=== PATIENT | female | born 1995 | race Caucasian/White ===

== ENCOUNTER 2016-09-29 21:00 | Emergency (ER) | payer BC, MEDICAID ==
--- NOTE | 2016-09-29 21:58 | ER Document Report ---
ED GI/ - General Chief Complaint: Vag Bleeding, +preg <12wks Stated Complaint: VAGINAL CRAMPING,BLEEDING Time Seen by Provider: 09/29/16 21:50 Notes: Patient is a 21-year-old female, at 7.5 weeks gestation by last menstrual period, that comes emergency department for chief complaint of abdominal cramping today with lower abdominal cramps, she also has had vaginal bleeding with some spotting, denies severe pain or heavy bleeding. Patient denies fever , vomiting, or any other areas of pain. Patient had a miscarriage in the first trimester with her first . She is on vitamins, takes no other medications, denies any other medical history. TRAVEL OUTSIDE OF THE [place] IN LAST 30 DAYS: No - Related Data Allergies/Adverse Reactions: amoxicillin trihydrate [From Augmentin] Allergy (Verified 03/07/16 08:53) Potassium Clavulanate * [From Augmentin] Allergy (Verified 03/07/16 08:53) Past Medical History - General Information source: Patient - Social History Smoking Status: Never Smoker Frequency of alcohol use: None Drug Abuse: None Lives with: Family Family History: Reviewed & Not Pertinent - Medical History Medical History: Negative Renal/ Medical History: Denies: Hx Peritoneal Dialysis Past Surgical History: Reports: Hx Umbilical Hernia - Immunizations Immunizations up to date: Yes Hx Diphtheria, Pertussis, Tetanus Vaccination: Yes Review of Systems - Review of Systems Constitutional: No symptoms reported EENT: No symptoms reported Cardiovascular: No symptoms reported Respiratory: No symptoms reported Gastrointestinal: See HPI Genitourinary: See HPI Female Genitourinary: No symptoms reported Musculoskeletal: No symptoms reported Skin: No symptoms reported Hematologic/Lymphatic: No symptoms reported Neurological/Psychological: No symptoms reported Physical Exam - Vital signs Vitals: Temp Pulse Resp BP Pulse Ox 98.2 F 88 18 129/78 H 98 09/29/16 21:13 09/29/16 21:13 09/29/16 21:13 09/29/16 21:13 09/29/16 21:13 Interpretation: Normal - General General appearance: Appears well, Alert In distress: None - HEENT Head: Normocephalic, Atraumatic Eyes: Normal Extraocular movements intact: Yes Eyelashes: Normal Pupils: PERRL Nasal: Normal Mouth/Lips: Normal Mucous membranes: Normal Pharynx: Normal Neck: Normal - Respiratory Respiratory status: No respiratory distress Chest status: Nontender Breath sounds: Normal. No: Decreased air movement, Wheezing Chest palpation: Normal - Cardiovascular Rhythm: Regular. No: Tachycardia Heart sounds: Normal auscultation, S1 appreciated, S2 appreciated Murmur: No - Abdominal Inspection: Normal Distension: No distension Bowel sounds: Normal Tenderness: Tender - very mild generalized lower abdominal tenderness Organomegaly: No organomegaly - Back Back: Normal, Nontender - Extremities General upper extremity: Normal inspection, Nontender, Normal color, Normal ROM , Normal temperature General lower extremity: Normal inspection, Nontender, Normal color, Normal ROM , Normal temperature, Normal weight bearing. No: Randy's sign - Neurological Neuro grossly intact: Yes Cognition: Normal Orientation: AAOx4 Kalee Coma Scale Eye Opening: Spontaneous [place] Coma Scale Verbal: Oriented Kalee Coma Scale Motor: Obeys Commands [place] Coma Scale Total: 15 Speech: Normal Motor strength normal: LUE, RUE, LLE, RLE Sensory: Normal - Psychological Associated symptoms: Normal affect, Normal mood - Skin Skin Temperature: Warm Skin Moisture: Dry Skin Color: Normal Course - Re-evaluation Re-evalutation: Is well-appearing, abdominal exam is unremarkable, vital signs with no acute abnormalities. CBC, urine generally unremarkable. HCG is low, only in the 400s. RhoGam is not indicated. Ultrasound with no acute abnormalities but also does not show an IUP which is consistent with patient's low hCG. I discussed with patient, mother in detail. Discussed hCG repeat, patient was given a prescription for this, discussed details about this, discussed follow-up , discussed return precautions in detail, patient and mother state understanding and agreement with plan. - Vital Signs Vital signs: Temp Pulse Resp BP Pulse Ox 97.4 F 68 14 118/75 99 09/30/16 00:58 09/30/16 00:58 09/30/16 00:58 09/30/16 00:58 09/30/16 00:58 - Laboratory Result Diagrams: 09/29/16 22:30 Laboratory results interpreted by me: 09/29/16 09/29/16 09/29/16 22:30 22:30 22:30 WBC 10.7 H Hgb 15.6 H Beta HCG, Quant 483.74 H Urine Blood SMALL H Discharge - Discharge Clinical Impression: Vaginal bleeding in patient at less than 20 weeks gestation, Pelvic cramping Condition: Stable Disposition: HOME, SELF-CARE Additional Instructions: Your hCG ( hormone) today is low at 483, I recommend a repeat in 48-72 hours to recheck this and trend either take the prescription to the lab or return to emergency department to have this accomplished. Ultrasound shows no concerning abnormalities but it is too early to tell what is happening at this point in the . Your blood type is A+. Avoid any stressful physical activity beyond walking, avoid jumping, lifting, sexual intercourse until cleared by CERTIFIED PHLEBOTOMIST. Follow-up with OBGYN closely. Return to emergency department sooner for any concerning or worsening symptoms including severe pain, heavy bleeding with dizziness, fever, or any other concerning symptoms. Forms: Follow-Up Laboratory Testing, Special Work Note
[2016-09-29 22:45] LABS: ABSOLUTE BASOPHILS # (AUTO) 0.1 10^3/uL (0.0-0.2); ABSOLUTE EOSINOPHILS # (AUTO) 0.1 10^3/uL (0.0-0.6); ABSOLUTE LYMPHOCYTES (AUTO) 3.8 10^3/uL (0.5-4.7); ABSOLUTE MONOCYTES (AUTO) 0.9 10^3/uL (0.1-1.4); ABSOLUTE NEUT (AUTO) 5.8 10^3/uL (1.7-8.2); BASOPHILS % (AUTO) 0.6 % (0-2); EOSINOPHILS % (AUTO) 1.3 % (0-6); HEMATOCRIT 46.8 % (36.0-47.0); HEMOGLOBIN 15.6 g/dL (12.0-15.5); LYMPHOCYTES % (AUTO) 35.8 % (13-45); MEAN CORPUSCULAR HEMOGLOBIN 30.6 pg (27.0-33.4); MEAN CORPUSCULAR HGB CONC 33.3 g/dL (32.0-36.0); MEAN CORPUSCULAR VOLUME 92 fl (80-97); MONOCYTES % (AUTO) 8.1 % (3-13); RED BLOOD COUNT 5.08 10^6/uL (3.72-5.28); RED CELL DISTRIBUTION WIDTH 12.5 % (11.5-14.0); SEGMENTED NEUTROPHILS % (AUTO) 54.2 % (42-78); WHITE BLOOD COUNT 10.7 10^3/uL (4.0-10.5)
[2016-09-29 22:54] LABS: APPEARANCE,URINE SLIGHTLY-CLOUDY; BILIRUBIN,URINE NEGATIVE (NEGATIVE); GLUCOSE, URINE NEGATIVE (NEGATIVE); KETONES,URINE NEGATIVE (NEGATIVE); LEUKOCYTE ESTERASE,URINE NEGATIVE (NEGATIVE); NITRITE,URINE NEGATIVE (NEGATIVE); PROTEIN,URINE NEGATIVE (NEGATIVE); URINE SPECIFIC GRAVITY 1.006; UROBILINOGEN,URINE NEGATIVE mg/dL (<2.0)
--- NOTE | 2016-09-30 00:17 | RADIOLOGY REPORT (SQ) ---
EXAM DESCRIPTION: U/S OB TRANSVAG W/DOPPLER COMPLETED DATE/TIME: 09/29/2016 11:57 pm REASON FOR STUDY: cramping, vaginal bleeding COMPARISON: None. TECHNIQUE: Transvaginal static and realtime grayscale images acquired of the pelvis. Additional jazmin cted spectral and color Doppler images recorded. All images stored on PACs. bHC LIMITATIONS: None. FINDINGS: UTERUS: No masses. No anomalies. GESTATIONAL SAC: Probable gestational sac visualized measuring 0.7 cm YOLK SAC: No. POLE: Presumed pole measuring 0.4 cm RIGHT ADNEXA: Normal ovary with normal vascular flow. No adnexal free fluid. No adnexal masses. LEFT ADNEXA: Normal ovary with normal vascular flow. No adnexal free fluid. No adnexal masses. FREE FLUID: None. OTHER: No other significant finding. IMPRESSION: POSSIBLE EARLY INTRAUTERINE . BHCG LEVEL APPROPRIATE FOR ENDOMETRIAL FINDINGS, BUT FAR BELOW THRESHOLD FOR SONOGRAPHIC CONFIRMATION . CONSIDER F/U BHCG AND/OR ULTRASOUND FOR VERIFICATION AND TO EXCLUDE ECTOPIC . Trimester of : First - 0 to 13 weeks. TECHNICAL DOCUMENTATION: JOB ID: [id number] [employer] All Rights Reserved
[2016-09-30 00:59] VITALS: BP 118/75
== END 2016-09-30 00:58 | disposition home or self-care (01) ==
LOC: ER 21:00
DX: O20.9 Hemorrhage in early pregnancy, unspecified (principal); R10.2 Pelvic and perineal pain; Z3A.01 Less than 8 weeks gestation of pregnancy; Z88.0 Allergy status to penicillin
CPT/HCPCS: 36415; 76817; 81001; 84702; 85025; 86900; 86901; 93976; 99284

== ENCOUNTER → 2016-10-03 | Outpatient (CLI) | payer MEDICAID | LOC: LAB 11:10 | DX: O46.90 Antepartum hemorrhage, unspecified, unspecified trimester (principal) | CPT/HCPCS: 36415; 84702 ==

== ENCOUNTER → 2016-10-10 | Outpatient (CLI) | payer MEDICAID | LOC: OCH 10:41 | DX: O20.0 Threatened abortion (principal) | CPT/HCPCS: 36415; 84702 ==

== ENCOUNTER → 2016-10-10 | Outpatient (CLI) | payer MEDICAID ==
--- NOTE | 2016-10-10 11:43 | RADIOLOGY REPORT (SQ) ---
EXAM DESCRIPTION: U/S NON-OB PELVIS W/O DOP COMPLETED DATE/TIME: 10/10/2016 10:44 am REASON FOR STUDY: EVALUATE FOR RETAINED PRODUCTS OF CONCEPTION O20.0 THREATENED COMPARISON: None. TECHNIQUE: Dynamic and static grayscale images acquired of the pelvis via transabdominal approach an d recorded on PACS. Additional selected color Doppler and spectral images recorded. LIMITATIONS: None. FINDINGS: UTERUS: Contour normal. No mass. ENDOMETRIAL STRIPE: No focal or generalized thickening. No masses. CERVIX: No nabothian cysts. RIGHT OVARY: Ovary not visualized. RIGHT OVARY DOPPLER: Normal arterial vascular flow without evidence for torsion. LEFT OVARY: No abnormal masses. LEFT OVARY DOPPLER: Normal arterial vascular flow without evidence for torsion. FREE FLUID: None noted. OTHER: No other significant finding. MEASUREMENTS: UTERUS: 8.2 x 4.5 x 3.4 cm ENDOMETRIAL STRIPE: 7 mm RIGHT OVARY: Not visualized. LEFT OVARY: 2.8 x 3.2 x 1.8 cm. IMPRESSION: No evidence of retained products. TECHNICAL DOCUMENTATION: JOB ID: [id number]- All Rights Reserved
== END ==
LOC: RAD 09:24
PROVIDERS: ATTEND Nurse Practitioner Women's Health
DX: R10.2 Pelvic and perineal pain (principal)
CPT/HCPCS: 76856

== ENCOUNTER 2016-12-26 10:26 | Emergency (ER) | payer MEDICAID ==
--- NOTE | 2016-12-26 11:27 | ER Document Report ---
ED General - General Chief Complaint: Hyperventilation Stated Complaint: WEAKNESS Time Seen by Provider: 12/26/16 11:07 Mode of Arrival: Ambulatory Information source: Patient Notes: 21-year-old female presents to ED after having a syncopal episode at work. She states she felt like her throat was closing that she was having trouble breathing and her chest felt tight when she collapsed. People around her say she was out for maybe 20 seconds. Then she woke up and had some tightness in her chest for about 3 minutes. Patient states she had some tightness mild in her chest with a deep breath when she first came in but she is feeling fine now. TRAVEL OUTSIDE OF THE [place] IN LAST 30 DAYS: No - HPI Onset: Just prior to arrival Onset/Duration: Gradual Quality of pain: Other - Tightness in her chest shortness of breath Severity: None Pain Level: Denies Associated symptoms: Other - Patient states she felt like her throat was closing then became short of breath tightness and chest collapsed for 20 seconds. When she woke up she could not breathe for a couple minutes and 911 was called. Exacerbated by: Denies Relieved by: Denies Similar symptoms previously: No Recently seen / treated by doctor: No - Related Data Allergies/Adverse Reactions: amoxicillin trihydrate [From Augmentin] Allergy (Verified 12/26/16 10:30) Potassium Clavulanate * [From Augmentin] Allergy (Verified 12/26/16 10:30) Past Medical History - General Information source: Patient Last Menstrual Period: 11/25/2015 - Social History Smoking Status: Former Smoker Cigarette use (# per day): No Chew tobacco use (# tins/day): No Smoking Education Provided: No Frequency of alcohol use: Rare Drug Abuse: None Occupation: [employer] Lives with: Family Family History: Arthritis, CAD, COPD, DM, Hyperlipidemia, Hypertension, Malignancy Patient has suicidal ideation: No Patient has homicidal ideation: No - Past Medical History Cardiac Medical History: Reports: Hx Heart Murmur - Heart at this time, Other - States 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 that was he was suppo Pulmonary Medical History: Reports: Hx Asthma EENT Medical History: Reports: None Neurological Medical History: Reports: None Endocrine Medical History: Reports: None Renal/ Medical History: Reports: Other - Miscarriage 2 the last one in September 2016 Malignancy Medical History: Reports: None GI Medical History: Reports: None Musculoskeltal Medical History: Reports Hx Musculoskeletal Trauma - Fractured left fourth finger and fifth left toe and nose Skin Medical History: Reports None Psychiatric Medical History: Reports: Hx Depression Traumatic Medical History: Reports: Hx Fractures - Left fourth finger left fifth toe Infectious Medical History: Reports: None Past Surgical History: Reports: Hx Umbilical Hernia - Immunizations Immunizations up to date: Yes Hx Diphtheria, Pertussis, Tetanus Vaccination: Yes Review of Systems - Review of Systems Constitutional: No symptoms reported EENT: No symptoms reported Cardiovascular: Syncope Respiratory: Short of breath Gastrointestinal: No symptoms reported Genitourinary: No symptoms reported Female Genitourinary: No symptoms reported Musculoskeletal: No symptoms reported Skin: No symptoms reported Hematologic/Lymphatic: No symptoms reported Neurological/Psychological: No symptoms reported -: Yes All other systems reviewed and negative Physical Exam - Vital signs Vitals: Temp Pulse Resp BP Pulse Ox 98.5 F 65 14 107/44 L 100 12/26/16 10:42 12/26/16 10:42 12/26/16 10:42 12/26/16 10:42 12/26/16 10:42 Interpretation: Normal, Other - Vital signs and pivot were 98.5 pulse 65 respirations 14 sat 100% and they had a blood pressure 107/44 I had the tech retake the blood pressure in the emergency room and her blood pressure was 118/ 60 - General General appearance: Appears well, Alert - HEENT Head: Normocephalic, Atraumatic Eyes: Normal Pupils: PERRL - Respiratory Respiratory status: No respiratory distress Chest status: Nontender Breath sounds: Normal Chest palpation: Normal - Cardiovascular Rhythm: Regular Heart sounds: Normal auscultation Murmur: No - Abdominal Inspection: Normal Distension: No distension Bowel sounds: Normal Tenderness: Nontender Organomegaly: No organomegaly - Back Back: Normal, Nontender - Extremities General upper extremity: Normal inspection, Nontender, Normal color, Normal ROM , Normal temperature General lower extremity: Normal inspection, Nontender, Normal color, Normal ROM , Normal temperature, Normal weight bearing. No: Randy's sign - Neurological Neuro grossly intact: Yes Cognition: Normal Orientation: AAOx4 Kalee Coma Scale Eye Opening: Spontaneous [place] Coma Scale Verbal: Oriented [place] Coma Scale Motor: Obeys Commands [place] Coma Scale Total: 15 Speech: Normal Motor strength normal: LUE, RUE, LLE, RLE Sensory: Normal - Psychological Associated symptoms: Normal affect, Normal mood - Skin Skin Temperature: Warm Skin Moisture: Dry Skin Color: Normal Course - Re-evaluation Re-evalutation: 12/26/16 11:[address] Parham and he recommended an ekg and follow up with her primary md 12/26/16 11:[address] Parham and patient will be discharged home. - Vital Signs Vital signs: Temp Pulse Resp BP Pulse Ox 98.5 F 65 14 107/44 L 100 12/26/16 10:42 12/26/16 10:42 12/26/16 10:42 12/26/16 10:42 12/26/16 10:42 - EKG Interpretation by Me EKG shows normal: Sinus rhythm Rate: Normal Rhythm: NSR Discharge - Discharge Clinical Impression: Syncope and collapse Condition: Stable Disposition: HOME, SELF-CARE Instructions: Family Physicians / Practices Additional Instructions: SYNCOPAL EPISODE: Syncope (fainting or near-fainting) can occur from many different health problems. Or it can be a simple fainting spell requiring no treatment. It is safe for you to go home, but further evaluation will likely be necessary. Your work-up may include tests for internal bleeding, heart disease, medication problems, or near-strokes. Tests are not always required, however, depending on the nature of your problem. The warning signs of an impending faint include: dizziness, lightheadedness , nausea, hot flashes, tingling, and weakness. If this happens, lay down and put your feet up, then wait until all of these symptoms have passed before standing up again. If these episodes become recurrent, or if you develop chest pain, heart palpitations, mental confusion, blurred vision, or headache, then you should call the physician, or go to the emergency room. NORMAL EXAM AND WORKUP: At this time, your examination and workup show no significant abnormality. No significant abnormal physical findings were noted. EKG was ordered show no significant abnormality. Although your examination and all studies that were ordered showed no significant abnormal finding, there are no examinations and no studies that are 100% accurate. There is always the possibility that some abnormality could exist and not be detected with physical examination or within the limits and capabilities of laboratory and other studies. You should return or follow up as you were instructed on your visit today for further evaluation if your symptoms do not resolve. FOLLOW-UP CARE: If you have been referred to a physician for follow-up care, call the physician s office for an appointment as you were instructed or within the next two days. If you experience worsening or a significant change in your symptoms, notify the physician immediately or return to the Emergency Department at any time for re-evaluation. Forms: Return to Work
[2016-12-26 11:55] VITALS: BP 107/44
--- NOTE | 2016-12-26 21:48 | EKG REPORT ---
SEVERITY:- NORMAL ECG - SINUS RHYTHM : Confirmed by: Daysi Lawson 26-Dec-2016 21:47:42
== END 2016-12-26 11:50 | disposition home or self-care (01) ==
LOC: ER 10:26
DX: R55 Syncope and collapse (principal); R07.89 Other chest pain; R06.02 Shortness of breath; J45.909 Unspecified asthma, uncomplicated; Z88.0 Allergy status to penicillin; Z87.891 Personal history of nicotine dependence; Z86.79 Personal history of other diseases of the circulatory system
CPT/HCPCS: 93005; 93010; 99284

== ENCOUNTER 2018-03-18 05:47 | Emergency (ER) | payer SELFPAY ==
[2018-03-18] MEDS ORDERED: TETRACAINE HCL 0.5% OPH SOLN 4 ML OD ONE (06:58)
[2018-03-18 07:27] VITALS: BP 102/57
[2018-03-18] MEDS ORDERED: BESIFLOXACIN HCL 0.6% OPH SUSP 5 ML BOTTLE OD ONE (08:08)
[2018-03-18] MEDS ORDERED: KETOROLAC TROMETHAMINE 0.45% 4 DROP/0.4 ML DROPERETTE OD ONE (08:09)
--- NOTE | 2018-03-18 08:16 | ER Document Report ---
ED General - General Chief Complaint: Eye Injury Stated Complaint: EYE INJURY Time Seen by Provider: 03/18/18 06:37 TRAVEL OUTSIDE OF THE [place] IN LAST 30 DAYS: No - HPI Patient complains to provider of: Right eye pain Notes: Patient coming in for right eye injury. Patient states approximate 24 hours ago was scratched in the face by her cat and possibly scratching. Patient states photophobia. Patient states tearing and some slight blurry vision. Patient otherwise denies wearing any contacts. Patient is resting comfortably upon my evaluation. - Related Data Allergies/Adverse Reactions: amoxicillin trihydrate [From Augmentin] Allergy (Verified 12/26/16 10:30) Potassium Clavulanate * [From Augmentin] Allergy (Verified 12/26/16 10:30) Past Medical History - Social History Smoking Status: Never Smoker Chew tobacco use (# tins/day): No Frequency of alcohol use: None Drug Abuse: None Family History: Arthritis, CAD, COPD, DM, Hyperlipidemia, Hypertension, Malignancy Patient has suicidal ideation: No Patient has homicidal ideation: No - Past Medical History Cardiac Medical History: Reports: Hx Heart Murmur - Heart at this time Pulmonary Medical History: Reports: Hx Asthma Renal/ Medical History: Denies: Hx Peritoneal Dialysis Musculoskeletal Medical History: Reports Hx Musculoskeletal Trauma - Fractured left fourth finger and fifth left toe and nose Psychiatric Medical History: Reports: Hx Depression Traumatic Medical History: Reports: Hx Fractures - Left fourth finger left fifth toe Past Surgical History: Reports: Hx Abdominal Surgery - umbilical, Hx Umbilical Hernia - Immunizations Immunizations up to date: Yes Hx Diphtheria, Pertussis, Tetanus Vaccination: Yes Review of Systems - Review of Systems Constitutional: No symptoms reported EENT: Eye pain Cardiovascular: No symptoms reported Respiratory: No symptoms reported Gastrointestinal: No symptoms reported Genitourinary: No symptoms reported Female Genitourinary: No symptoms reported Musculoskeletal: No symptoms reported Skin: No symptoms reported Hematologic/Lymphatic: No symptoms reported Neurological/Psychological: No symptoms reported -: Yes All other systems reviewed and negative Physical Exam - Vital signs Vitals: Temp Pulse Resp BP Pulse Ox 97.4 F 64 20 114/71 100 03/18/18 05:52 03/18/18 05:52 03/18/18 05:52 03/18/18 05:52 03/18/18 05:52 Interpretation: Normal - General General appearance: Appears well, Alert - HEENT Head: Normocephalic, Atraumatic Eyes: Normal Conjunctiva: Normal Cornea: Corneal abrasion - Right eye please see procedure note Extraocular movements intact: Yes Pupils: PERRL - Respiratory Respiratory status: No respiratory distress Chest status: Nontender Breath sounds: Normal Chest palpation: Normal - Cardiovascular Rhythm: Regular Heart sounds: Normal auscultation Murmur: No - Abdominal Inspection: Normal Distension: No distension Bowel sounds: Normal Tenderness: Nontender Organomegaly: No organomegaly - Back Back: Normal, Nontender - Extremities General upper extremity: Normal inspection, Nontender, Normal color, Normal ROM , Normal temperature General lower extremity: Normal inspection, Nontender, Normal color, Normal ROM , Normal temperature, Normal weight bearing. No: Randy's sign - Neurological Neuro grossly intact: Yes Cognition: Normal Orientation: AAOx4 [place] Coma Scale Eye Opening: Spontaneous [place] Coma Scale Verbal: Oriented Kalee Coma Scale Motor: Obeys Commands Kalee Coma Scale Total: 15 Speech: Normal Motor strength normal: LUE, RUE, LLE, RLE Sensory: Normal - Psychological Associated symptoms: Normal affect, Normal mood - Skin Skin Temperature: Warm Skin Moisture: Dry Skin Color: Normal Course - Re-evaluation Re-evalutation: 03/18/18 14:13 Patient with a corneal abrasion to the right eye linear no signs of globe penetration. Patient will be placed on antibiotics prophylactically for coverage. Patient was given follow-up instructions to see ophthalmology. Patient will be discharged home - Vital Signs Vital signs: Temp Pulse Resp BP Pulse Ox 98.1 F 71 16 102/57 L 99 03/18/18 07:21 03/18/18 07:21 03/18/18 07:21 03/18/18 07:21 03/18/18 07:21 Procedures - Eye Procedure Right Fluorescein applied: Right Slit lamp used: Yes Notes: 03/18/18 14:14 Tetracaine drops were placed in the eye. Forcing was instilled the was then proceeded showing a linear abrasion to the eye. Slit-lamp was used to confirm there is no Collins sign no pooling of floor seen in the anterior chamber no leaking of fluid. No signs of globe penetration. Patient will be discharged home Besivance encouraged follow-up with ophthalmology. States understanding will be discharged home. Eyes picture: 1 - Linear abrasion vertical Discharge - Discharge Clinical Impression: Corneal abrasion Qualifiers: Encounter type: initial encounter Laterality: right Qualified Code(s): S05.01XA - Injury of conjunctiva and corneal abrasion without foreign body, right eye, initial encounter Disposition: HOME, SELF-CARE Instructions: Corneal Abrasion ([facility]) Additional Instructions: Please use the antibiotic drops of the gave you here in the ER 1-2 drops in the right eye 3 times a day for the next 10 days. Please use the ketorolac drops for pain 1 drop 4 times a day as needed for pain Because you are also recommend taking Tylenol for pain control. Follow-up with an bacteriology teacher or the open hearth furnace operator provided. Prescriptions: Ketorolac Tromethamine 0.45% [Acuvail 0.45% Oph Soln 0.4 ml/Dropperette] 1 drop OD QID #5 droperette Forms: Return to Work Referrals: ALDA HERNANDEZ MD [ACTIVE STAFF] - Follow up as needed
== END 2018-03-18 08:39 | disposition home or self-care (01) ==
LOC: ER 05:47
DX: S05.01XA Injury of conjunctiva and corneal abrasion without foreign body, right eye, initial encounter (principal); W55.03XA Scratched by cat, initial encounter; J45.909 Unspecified asthma, uncomplicated; Z88.0 Allergy status to penicillin
CPT/HCPCS: 99283; J3490

== ENCOUNTER → 2018-03-20 | Outpatient (CLI) | payer SELFPAY ==
--- NOTE | 2018-03-20 14:58 | RADIOLOGY REPORT (SQ) ---
EXAM DESCRIPTION: U/S [id number] TRNABD 1GES W/ODOP COMPLETED DATE/TIME: 03/20/2018 2:46 pm REASON FOR STUDY: ENCTR FOR SUPERVISION OF OTHER NORMAL , 1ST TRIMESTER (Z34.81) Z34.81 EN COUNTER FOR SUPRVSN OF NORMAL , FIRST TRIM COMPARISON: 09/12/2014 TECHNIQUE: Transabdominal static and realtime grayscale images acquired of the pelvis. Additional se lected spectral and color Doppler images recorded. All images stored on PACs. bHCG: Unknown. CLINICAL DATES: LMP 01/30/2018. 7 weeks. LIMITATIONS: None. FINDINGS: FETUS: Single Living intrauterine . ULTRASOUND EGA: 6 weeks 1 day. ULTRASOUND CONSTANCE: 11/12/2018 EFW: Not applicable less than 20 weeks. CRL: 0.44 cm FHR: 158 beats per minute. SURVEY: Too early to assess. AMNIOTIC FLUID: Adequate amount. PLACENTA: Not yet developed due to early gestation. SUBCHORIONIC BLEED: No SIZE OF BLEED: Not applicable. UTERUS: No masses. No anomalies. CERVICAL LENGTH: Not measured. Closed. RIGHT ADNEXA: Ovary not seen. No adnexal free fluid. No adnexal masses. LEFT ADNEXA: Normal ovary with normal vascular flow. 2.6 x 2.5 x 2 cm. No adnexal free fluid. No adnexal masses. FREE FLUID: None. OTHER: No other significant finding. IMPRESSION: LIVING INTRAUTERINE . EGA 6 weeks 1 day. Follow-up as clinically indicated. Trimester of : First - 0 to 13 weeks. TECHNICAL DOCUMENTATION: JOB ID: [id number] [employer]- All Rights Reserved rev-09/20 Reading location - IP/workstation name: [email or web address]
== END ==
LOC: RAD 13:53
PROVIDERS: ATTEND Nurse Practitioner
DX: Z34.81 Encounter for supervision of other normal pregnancy, first trimester (principal)
CPT/HCPCS: 76801

== ENCOUNTER 2018-07-05 15:41 | Emergency (ER) | payer MEDICAID ==
--- NOTE | 2018-07-05 16:04 | ER Document Report ---
ED Medical Screen (RME) - General Chief Complaint: Dizziness Stated Complaint: DIZZY Time Seen by Provider: 07/05/18 16:03 Mode of Arrival: Ambulatory Information source: Patient TRAVEL OUTSIDE OF THE [place] IN LAST 30 DAYS: No - HPI Patient complains to provider of: dizziness Onset: Just prior to arrival - pt is approx 21 weeks with onset of dizzness at work earlier this afternoon - Related Data Allergies/Adverse Reactions: amoxicillin trihydrate [From Augmentin] Allergy (Verified 07/05/18 15:44) Potassium Clavulanate * [From Augmentin] Allergy (Verified 07/05/18 15:44) Past Medical History - Past Medical History Cardiac Medical History: Reports: Hx Heart Murmur - Heart at this time Pulmonary Medical History: Reports: Hx Asthma Renal/ Medical History: Denies: Hx Peritoneal Dialysis Musculoskeltal Medical History: Reports Hx Musculoskeletal Trauma - Fractured left fourth finger and fifth left toe and nose Psychiatric Medical History: Reports: Hx Depression Traumatic Medical History: Reports: Hx Fractures - Left fourth finger left fifth toe Past Surgical History: Reports: Hx Abdominal Surgery - umbilical, Hx Umbilical Hernia - Immunizations Immunizations up to date: Yes Hx Diphtheria, Pertussis, Tetanus Vaccination: Yes Physical Exam - Vital signs Vitals: Temp Pulse Resp BP Pulse Ox 97.9 F 81 20 120/98 H 98 07/05/18 15:46 07/05/18 15:46 07/05/18 15:46 07/05/18 15:46 07/05/18 15:46 Course - Vital Signs Vital signs: Temp Pulse Resp BP Pulse Ox 97.9 F 81 20 120/98 H 98 07/05/18 15:46 07/05/18 15:46 07/05/18 15:46 07/05/18 15:46 07/05/18 15:46
--- NOTE | 2018-07-05 16:33 | EKG REPORT ---
SEVERITY:- NORMAL ECG - SINUS RHYTHM : Confirmed by: Daysi Lawson 05-Jul-2018 16:33:11
[2018-07-05 16:41] LABS: ABSOLUTE BASOPHILS # (AUTO) 0.1 10^3/uL (0.0-0.2); ABSOLUTE LYMPHOCYTES (AUTO) 1.8 10^3/uL (0.5-4.7); ABSOLUTE MONOCYTES (AUTO) 0.7 10^3/uL (0.1-1.4); ABSOLUTE NEUT (AUTO) 9.6 10^3/uL (1.7-8.2); BASOPHILS % (AUTO) 0.5 % (0-2); EOSINOPHILS % (AUTO) 0.3 % (0-6); HEMATOCRIT 37.4 % (36.0-47.0); HEMOGLOBIN 12.8 g/dL (12.0-15.5); LYMPHOCYTES % (AUTO) 14.7 % (13-45); MEAN CORPUSCULAR HEMOGLOBIN 31.2 pg (27.0-33.4); MEAN CORPUSCULAR HGB CONC 34.1 g/dL (32.0-36.0); MEAN CORPUSCULAR VOLUME 92 fl (80-97); MONOCYTES % (AUTO) 5.6 % (3-13); PLATELET COUNT 237 10^3/uL (150-450); RED BLOOD COUNT 4.09 10^6/uL (3.72-5.28); RED CELL DISTRIBUTION WIDTH 13.1 % (11.5-14.0); SEGMENTED NEUTROPHILS % (AUTO) 78.9 % (42-78); TOTAL CELLS COUNTED % (AUTO) 100 %; WHITE BLOOD COUNT 12.2 10^3/uL (4.0-10.5)
[2018-07-05 16:49] LABS: APPEARANCE,URINE CLEAR; BILIRUBIN,URINE NEGATIVE (NEGATIVE); COLOR,URINE YELLOW; GLUCOSE, URINE NEGATIVE (NEGATIVE); KETONES,URINE NEGATIVE (NEGATIVE); LEUKOCYTE ESTERASE,URINE NEGATIVE (NEGATIVE); NITRITE,URINE NEGATIVE (NEGATIVE); PROTEIN,URINE NEGATIVE (NEGATIVE); URINE SPECIFIC GRAVITY 1.006; UROBILINOGEN,URINE NEGATIVE mg/dL (<2.0)
[2018-07-05 16:58] LABS: ALANINE AMINOTRANSFERASE 50 U/L (9-52); ALBUMIN 3.8 g/dL (3.5-5.0); ALKALINE PHOSPHATASE 102 U/L (38-126); ANION GAP 7 (5-19); ASPARTATE AMINO TRANSFERASE 29 U/L (14-36); BILIRUBIN,DIRECT 0.1 mg/dL (0.0-0.4); BILIRUBIN,TOTAL 0.2 mg/dL (0.2-1.3); BLOOD UREA NITROGEN 7 mg/dL (7-20); CALCIUM 9.3 mg/dL (8.4-10.2); CARBON DIOXIDE 27 mmol/L (22-30); CHLORIDE 105 mmol/L (98-107); GLUCOSE 77 mg/dL (75-110); SODIUM 138.8 mmol/L (137-145); TOTAL PROTEIN 6.5 g/dL (6.3-8.2)
--- NOTE | 2018-07-05 18:13 | ER Document Report ---
Addendum entered and electronically signed by YURI ROMAN PA-C 07/05/18 18:14: Course - Re-evaluation Re-evalutation: 07/05/18 18:14 Patient does not have any signs or symptoms concerning for pulmonary embolism. - Vital Signs Vital signs: Temp Pulse Resp BP Pulse Ox 97.9 F 81 20 120/98 H 98 07/05/18 15:46 07/05/18 15:46 07/05/18 15:46 07/05/18 15:46 07/05/18 15:46 - Laboratory Result Diagrams: 07/05/18 16:22 07/05/18 16:22 Laboratory results interpreted by me: 07/05/18 07/05/18 16:22 16:22 WBC 12.2 H Seg Neutrophils % 78.9 H Absolute Neutrophils 9.6 H Creatinine 0.51 L Beta HCG, Quant 82269.00 H Original Note: ED General - General Chief Complaint: Dizziness Stated Complaint: DIZZY Time Seen by Provider: 07/05/18 16:03 Mode of Arrival: Ambulatory TRAVEL OUTSIDE OF THE [place] IN LAST 30 DAYS: No - HPI Patient complains to provider of: Lightheaded and dizziness Onset: This afternoon Onset/Duration: Sudden Quality of pain: No pain Severity: None Context: Standing at work Associated symptoms: None Exacerbated by: Standing Relieved by: Denies Similar symptoms previously: No Recently seen / treated by doctor: No Notes: Patient is a 23-year-old female who presents with spell of dizziness, feeling faint, numb fingertips and toes. 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 She has had similar episodes in . She is about 20 weeks along in her fourth . History of 3 miscarriages. - Related Data Allergies/Adverse Reactions: amoxicillin trihydrate [From Augmentin] Allergy (Verified 07/05/18 15:44) Potassium Clavulanate * [From Augmentin] Allergy (Verified 07/05/18 15:44) Past Medical History - General Information source: Patient - Social History Smoking Status: Never Smoker Chew tobacco use (# tins/day): No Frequency of alcohol use: None Drug Abuse: None Family History: Arthritis, CAD, COPD, DM, Hyperlipidemia, Hypertension, Malignancy Patient has suicidal ideation: No Patient has homicidal ideation: No - Past Medical History Cardiac Medical History: Reports: Hx Heart Murmur - Heart at this time Pulmonary Medical History: Reports: Hx Asthma Renal/ Medical History: Denies: Hx Peritoneal Dialysis Musculoskeletal Medical History: Reports Hx Musculoskeletal Trauma - Fractured left fourth finger and fifth left toe and nose Psychiatric Medical History: Reports: Hx Depression Traumatic Medical History: Reports: Hx Fractures - Left fourth finger left fifth toe Past Surgical History: Reports: Hx Abdominal Surgery - umbilical, Hx Umbilical Hernia - Immunizations Immunizations up to date: Yes Hx Diphtheria, Pertussis, Tetanus Vaccination: Yes Review of Systems - Review of Systems Notes: Constitutional: No fevers. No chills. EENT: No eye redness. No eye pain. No ear pain. No sore throat. Cardiovascular: No chest pain. No palpitations. Respiratory: No cough. No shortness of breath. No respiratory distress. Gastrointestinal: No abdominal pain. No nausea, vomiting, or diarrhea. Genitourinary: Atraumatic. No lesions. No pain. No discharge. Musculoskeletal: Atraumatic. No swelling. No deformities. Skin: No rash or lesions. Lymphatic: No swollen lymph nodes. Neurologic: Dizziness, lightheadedness, fingertip and toe paresthesias Psychiatric: No suicidal or homicidal ideation. Physical Exam - Vital signs Vitals: Temp Pulse Resp BP Pulse Ox 97.9 F 81 20 120/98 H 98 07/05/18 15:46 07/05/18 15:46 07/05/18 15:46 07/05/18 15:46 07/05/18 15:46 - Notes Notes: General: Well-developed, well-nourished. In no acute distress. Non-toxic appearing. Cardiac: Well-perfused. Regular rate and rhythm. No murmurs, rubs, or gallops. Pulmonary: No respiratory distress. No cyanosis. Bilateral lung fiels are clear to auscultation. Abdominal: Non-distended. Non-rigid. Bowels sounds are present in all four quadrants. No guarding or rebound. HEENT: Head is atraumatic. Conjunctivae not reddened. No tearing. PERRL. EOMI. Orbits atraumatic. No periorbital swelling or erythema. Oropharynx is without erythema, swelling, or exudates. Neck: Supple. No adenopathy. No meningismus. Dermatologic: Warm with good turgor. No rash. Atraumatic. Chest: Atraumatic. No chest wall tenderness to palpation. Musculoskeletal: Moves all extremities well. No range of motion deficits. no muscular or joint tenderness. No paraspinal muscle tenderness. no midline spinal tenderness or step-off. Genitourinary: Examination deferred Neurologic: No gross neurologic deficits. Psychiatric: Normal mood. Course - Re-evaluation Re-evalutation: 07/05/18 18:11 Patient has a normal exam and normal labs it does not sound like a case of dehydration. EKG is completely normal. No anemia. Sounds like this may be p regnancy related when she stands for too long. 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 She is not currently having any pelvic complaints. - Vital Signs Vital signs: Temp Pulse Resp BP Pulse Ox 97.9 F 81 20 120/98 H 98 07/05/18 15:46 07/05/18 15:46 07/05/18 15:46 07/05/18 15:46 07/05/18 15:46 - Laboratory Result Diagrams: 07/05/18 16:22 07/05/18 16:22 Laboratory results interpreted by me: 07/05/18 07/05/18 16:22 16:22 WBC 12.2 H Seg Neutrophils % 78.9 H Absolute Neutrophils 9.6 H Creatinine 0.51 L Beta HCG, Quant 73453.00 H - EKG Interpretation by Pa EKG shows normal: Sinus rhythm Rate: Normal Rhythm: NSR Discharge - Discharge Clinical Impression: Dizziness Disposition: HOME, SELF-CARE Instructions: Dizziness ([facility]) Additional Instructions: Recommended that you take more breaks from work. Elevate legs to help with swelling. Eat frequent small meals to prevent hypoglycemia Referrals: ob, your [Other] - Follow up as needed
[2018-07-05 18:25] VITALS: BP 107/58
== END 2018-07-05 18:23 | disposition home or self-care (01) ==
LOC: ER 15:41
DX: O26.899 Other specified pregnancy related conditions, unspecified trimester (principal); R42 Dizziness and giddiness; R20.0 Anesthesia of skin; O99.519 Diseases of the respiratory system complicating pregnancy, unspecified trimester; J45.909 Unspecified asthma, uncomplicated; Z3A.00 Weeks of gestation of pregnancy not specified; Z87.59 Personal history of other complications of pregnancy, childbirth and the puerperium; Z88.0 Allergy status to penicillin
CPT/HCPCS: 36415; 80053; 81001; 84702; 85025; 93005; 93010; 99284

== ENCOUNTER 2018-09-10 12:50 | Outpatient (CLI) | payer MEDICAID ==
[2018-09-10 13:47] LABS: APPEARANCE,URINE SLIGHTLY-CLOUDY; BILIRUBIN,URINE NEGATIVE (NEGATIVE); COLOR,URINE YELLOW; GLUCOSE, URINE NEGATIVE (NEGATIVE); KETONES,URINE NEGATIVE (NEGATIVE); LEUKOCYTE ESTERASE,URINE NEGATIVE (NEGATIVE); NITRITE,URINE NEGATIVE (NEGATIVE); PROTEIN,URINE NEGATIVE (NEGATIVE); URINE SPECIFIC GRAVITY 1.019; UROBILINOGEN,URINE NEGATIVE mg/dL (<2.0)
[2018-09-10 14:11] LABS: BACTERIA (WET MOUNT) 3+ BACTERIA SEEN; EPITHELIALS (WET MOUNT) 4+ EPITHELIALS SEEN; RBCS (WET MOUNT) RARE RBCS SEEN; T.VAGINALIS (WET MOUNT) NO TRICHOMONAS SEEN; WBCS (WET MOUNT) 2+ WBCS SEEN; YEAST (WET MOUNT) NO YEAST SEEN
[2018-09-10 14:19] LABS: URINE AMPHETAMINES SCREEN NEGATIVE; URINE BARBITURATES SCREEN NEGATIVE; URINE BENZODIAZEPINES SCREEN NEGATIVE; URINE COCAINE SCREEN NEGATIVE; URINE METHADONE SCREEN NEGATIVE; URINE PHENCYCLIDINE SCREEN NEGATIVE
[2018-09-10 14:27] LABS: URINE MARIJUANA (THC) SCREEN UNCONFIRMED POSITIVE
--- NOTE | 2018-09-10 15:44 | RADIOLOGY REPORT (SQ) ---
EXAM DESCRIPTION: U/S OB LIMITED COMPLETED DATE/TIME: 09/10/2018 3:02 pm REASON FOR STUDY: Cervical Length COMPARISON: 03/20/2018 TECHNIQUE: Limited transabdominal grayscale ultrasound for evaluation of specific requested obstetri samira parameters. LIMITATIONS: None. FINDINGS: CERVICAL LENGTH: 4.2 cm. Closed. LVP: 3.8 cm. FHR: 160 beats per minute. PRESENTATION: Breech. PLACENTA: Fundal. Grade 1. ANATOMY: Not assessed OTHER: No other significant findings. IMPRESSION: LIMITED OBSTETRICAL ULTRASOUND WITH MEASURED PARAMETERS DELINEATED ABOVE. Trimester of : Third trimester - 28 weeks to delivery. TECHNICAL DOCUMENTATION: JOB ID: [id number] [employer]- All Rights Reserved Reading location - IP/workstation name: [email or web address]
== END 2018-09-10 15:58 | disposition home or self-care (01) ==
LOC: LC 12:50
PROVIDERS: ATTEND Student in an Organized Health Care Education/Training Program
PROC: 4A1HXCZ Monitoring of Products of Conception, Cardiac Rate, External Approach (ICD-10-PCS; principal; 2018-09-10)
DX: O26.893 Other specified pregnancy related conditions, third trimester (principal); M54.9 Dorsalgia, unspecified; Z3A.31 31 weeks gestation of pregnancy
CPT/HCPCS: 87210; 81001; 80307; 76815; 59025; G0480 ×2; 80349

== ENCOUNTER 2018-10-20 20:32 | Outpatient (CLI) | payer MEDICAID ==
[2018-10-20 21:22] LABS: APPEARANCE,URINE SLIGHTLY-CLOUDY; BILIRUBIN,URINE NEGATIVE (NEGATIVE); COLOR,URINE YELLOW; GLUCOSE, URINE NEGATIVE (NEGATIVE); KETONES,URINE NEGATIVE (NEGATIVE); LEUKOCYTE ESTERASE,URINE MODERATE (NEGATIVE); NITRITE,URINE NEGATIVE (NEGATIVE); PROTEIN,URINE NEGATIVE (NEGATIVE); URINE SPECIFIC GRAVITY 1.009; UROBILINOGEN,URINE NEGATIVE mg/dL (<2.0)
[2018-10-20 21:40] LABS: URINE AMPHETAMINES SCREEN NEGATIVE; URINE BARBITURATES SCREEN NEGATIVE; URINE BENZODIAZEPINES SCREEN NEGATIVE; URINE COCAINE SCREEN NEGATIVE; URINE MARIJUANA (THC) SCREEN NEGATIVE; URINE METHADONE SCREEN NEGATIVE; URINE PHENCYCLIDINE SCREEN NEGATIVE
== END 2018-10-20 22:22 | disposition home or self-care (01) ==
LOC: LC 20:32
PROVIDERS: ATTEND Obstetrics & Gynecology
PROC: 4A1HXCZ Monitoring of Products of Conception, Cardiac Rate, External Approach (ICD-10-PCS; principal; 2018-10-20)
DX: Z34.83 Encounter for supervision of other normal pregnancy, third trimester (principal)
CPT/HCPCS: 80307; 81005; 84112

== ENCOUNTER 2018-11-04 16:05 | Outpatient (CLI) | payer MEDICAID ==
--- NOTE | 2018-11-04 17:01 | Non Stress Test Report ---
Non Stress Test Datetime Report Generated by CPN: 11/04/2018 17:01 DEMOGRAPHIC EGA NST: 39.5 EGA NST: 37.4 INDICATION Indication for Study: Ordered by Provider Indication for Study (NST) Other: labor check/ ROM VITAL SIGNS Temperature - NST: 98.0 Temperature - NST: 97.5 Pulse - NST: 78 RESP - NST: 14 NBPSYS NST: 128 NBPDIA NST: 77 MONITORING Monitor Explained: Monitor Explained; Test Explained; Patient Verbalized Understanding Monitor Explained: Monitor Explained; Test Explained; Patient Verbalized Understanding Time on Monitor: 11/04/2018 16:12 Time on Monitor: 10/20/2018 20:50 Time off Monitor: 11/04/2018 17:00 NST Duration: 48 NST INTERVENTIONS NST Interventions: PO Hydration; Reposition Patient NST Interventions: None Physician Notified NST: A TIWARI, CNM BABY A: [id number] BABY A Movement : Present Contraction Frequency : OCC Contraction Frequency : rare FHR Baseline : 135 FHR Baseline : 135 Accelerations : 15X15 Accelerations : 15X15 Decelerations : None Decelerations : None Variability : Moderate 6-25bpm Variability : Moderate 6-25bpm NST Review: Meets Criteria for Reactive NST NST Review: Meets Criteria for Reactive NST NST Review and Verified By : Danial Zamarripa RN NST Results: Reactive NST Results: Reactive NST REPORT Report Trigger: Send Report
== END 2018-11-04 16:58 | disposition home or self-care (01) ==
LOC: LC 16:05
PROVIDERS: ATTEND Obstetrics & Gynecology Gynecology
PROC: 4A1HXCZ Monitoring of Products of Conception, Cardiac Rate, External Approach (ICD-10-PCS; principal; 2018-11-04)
DX: O47.1 False labor at or after 37 completed weeks of gestation (principal); Z3A.39 39 weeks gestation of pregnancy
CPT/HCPCS: 59025

== ENCOUNTER 2018-11-11 23:58 | Outpatient (CLI) | payer MEDICAID ==
[2018-11-12 01:00] LABS: APPEARANCE,URINE CLEAR; BILIRUBIN,URINE NEGATIVE (NEGATIVE); COLOR,URINE YELLOW; GLUCOSE, URINE NEGATIVE (NEGATIVE); KETONES,URINE NEGATIVE (NEGATIVE); LEUKOCYTE ESTERASE,URINE NEGATIVE (NEGATIVE); NITRITE,URINE NEGATIVE (NEGATIVE); PROTEIN,URINE NEGATIVE (NEGATIVE); URINE SPECIFIC GRAVITY 1.011; UROBILINOGEN,URINE NEGATIVE mg/dL (<2.0)
[2018-11-12] MEDS ORDERED: HYDROXYZINE PAMOATE 50 MG CAPSULE ONE (01:33)
--- NOTE | 2018-11-12 01:58 | Non Stress Test Report ---
Non Stress Test Datetime Report Generated by CPN: 11/12/2018 01:58 DEMOGRAPHIC EGA NST: 40.6 INDICATION Indication for Study: Ordered by Provider VITAL SIGNS Temperature - NST: 98.3 RESP - NST: 17 NBPSYS NST: 125 NBPDIA NST: 77 MONITORING Monitor Explained: Monitor Explained; Test Explained; Patient Verbalized Understanding Time on Monitor: 11/12/2018 00:16 Time off Monitor: 11/12/2018 01:21 NST Duration: 65 NST INTERVENTIONS NST Interventions: PO Hydration Physician Notified NST: Dr. Sanjeev BABY A: [id number] BABY A Movement : Present Contraction Frequency : irregular FHR Baseline : 120 Accelerations : 15X15 Decelerations : None Variability : Moderate 6-25bpm NST Review: Meets Criteria for Reactive NST NST Review and Verified By : Kelly Rosen RN NST Results: Reactive NST REPORT Report Trigger: Send Report
[2018-11-12] MEDS ORDERED: HYDROXYZINE PAMOATE 50 MG CAPSULE PO ONE (02:00)
[2018-11-12 02:25] LABS: URINE AMPHETAMINES SCREEN NEGATIVE; URINE BARBITURATES SCREEN NEGATIVE; URINE BENZODIAZEPINES SCREEN NEGATIVE; URINE COCAINE SCREEN NEGATIVE; URINE MARIJUANA (THC) SCREEN NEGATIVE; URINE METHADONE SCREEN NEGATIVE; URINE PHENCYCLIDINE SCREEN NEGATIVE
== END 2018-11-12 01:48 | disposition home or self-care (01) ==
LOC: LC 23:58
PROVIDERS: ATTEND Obstetrics & Gynecology
DX: O47.1 False labor at or after 37 completed weeks of gestation (principal); Z3A.40 40 weeks gestation of pregnancy
CPT/HCPCS: 59025; 81005; 80307; 84112; J3490

== ENCOUNTER 2018-11-12 18:27 | Inpatient (IN) | payer MEDICAID ==
[2018-11-12 19:26] LABS: URINE AMPHETAMINES SCREEN NEGATIVE; URINE BARBITURATES SCREEN NEGATIVE; URINE BENZODIAZEPINES SCREEN NEGATIVE; URINE COCAINE SCREEN NEGATIVE; URINE MARIJUANA (THC) SCREEN NEGATIVE; URINE METHADONE SCREEN NEGATIVE; URINE PHENCYCLIDINE SCREEN NEGATIVE
[2018-11-12 19:35] LABS: ABSOLUTE BASOPHILS # (AUTO) 0.1 10^3/uL (0.0-0.2); ABSOLUTE EOSINOPHILS # (AUTO) 0.1 10^3/uL (0.0-0.6); ABSOLUTE LYMPHOCYTES (AUTO) 2.4 10^3/uL (0.5-4.7); ABSOLUTE MONOCYTES (AUTO) 1.4 10^3/uL (0.1-1.4); ABSOLUTE NEUT (AUTO) 8.9 10^3/uL (1.7-8.2); BASOPHILS % (AUTO) 0.4 % (0-2); HEMATOCRIT 34.4 % (36.0-47.0); HEMOGLOBIN 11.9 g/dL (12.0-15.5); LYMPHOCYTES % (AUTO) 18.6 % (13-45); MEAN CORPUSCULAR HEMOGLOBIN 30.8 pg (27.0-33.4); MEAN CORPUSCULAR HGB CONC 34.6 g/dL (32.0-36.0); MEAN CORPUSCULAR VOLUME 89 fl (80-97); MONOCYTES % (AUTO) 10.8 % (3-13); PLATELET COUNT 331 10^3/uL (150-450); RED BLOOD COUNT 3.86 10^6/uL (3.72-5.28); RED CELL DISTRIBUTION WIDTH 12.5 % (11.5-14.0); SEGMENTED NEUTROPHILS % (AUTO) 69.2 % (42-78); TOTAL CELLS COUNTED % (AUTO) 100 %; WHITE BLOOD COUNT 12.8 10^3/uL (4.0-10.5)
[2018-11-12] MEDS ORDERED: DINOPROSTONE 10 MG VAGINAL INSERT.SR ONE (20:31)
[2018-11-12 20:32] LABS: APPEARANCE,URINE SLIGHTLY-CLOUDY; BILIRUBIN,URINE NEGATIVE (NEGATIVE); COLOR,URINE YELLOW; GLUCOSE, URINE 50 mg/dL (NEGATIVE); KETONES,URINE TRACE mg/dL (NEGATIVE); LEUKOCYTE ESTERASE,URINE NEGATIVE (NEGATIVE); NITRITE,URINE NEGATIVE (NEGATIVE); PROTEIN,URINE NEGATIVE (NEGATIVE); URINE SPECIFIC GRAVITY 1.024; UROBILINOGEN,URINE NEGATIVE mg/dL (<2.0)
[2018-11-12] MEDS ORDERED: DINOPROSTONE 10 MG VAGINAL INSERT.SR PV ONE (20:34)
[2018-11-12] MEDS ORDERED: DINOPROSTONE 10 MG VAGINAL INSERT.SR PV PRN (20:39)
[2018-11-12] MEDS ORDERED: RINGERS SOLUTION,LACTATED 1,000 ML IV PRN (20:39)
[2018-11-12] MEDS ORDERED: RINGERS SOLUTION,LACTATED 300 ML IV ONE (20:39)
[2018-11-12] MEDS ORDERED: OXYTOCIN/NORMAL SALINE 20 UNIT/1,000 ML RTUINJ IV PRN (20:39)
[2018-11-13] MEDS ORDERED: MISOPROSTOL 0.2 MG TABLET ONE (01:02)
[2018-11-13] MEDS ORDERED: OXYTOCIN/NORMAL SALINE 20 UNIT/1,000 ML RTUINJ ONE ×2 (01:02→21:48)
[2018-11-13] MEDS ORDERED: OXYTOCIN 10 UNIT/ML VIAL ONE ×2 (01:02→19:34)
[2018-11-13] MEDS ORDERED: LIDOCAINE 1% INJ-PF (10 MG/ML) 30 ML SDV ONE (01:02)
[2018-11-13] MEDS ORDERED: ZOLPIDEM TARTRATE 5 MG TABLET ONE (01:02)
[2018-11-13] MEDS ORDERED: ZOLPIDEM TARTRATE 5 MG TABLET PO ONE (01:15)
--- NOTE | 2018-11-13 07:02 | Admission Physical ---
Datetime Report Generated by CPN: 11/13/2018 07:01 CURRENT ADMISSION Indication for Induction: Not Applicable Admit Impression : Term, Intrauterine ; No Active Labor; Induction of Labor Admit Plan: Admit to Unit; Initiate Labor Induction Protocol ALLERGIES Medication Allergies: Yes Medication Allergies: amoxicillin trihydrate (11/12/2018); Potassium Clavulanate * (11/12/2018) Latex: Latex Allergies Food Allergies: none Environmental Allergies: none OBSTETRICAL HISTORY EDC: 11/06/2018 00:00 : 4 Para: 0 Term: 0 : 0 SAB: 0 IAB: 0 Ectopic: 0 Livin Cesareans: 0 VBACs: 0 Multiple Births: 0 Gestational Diabetes: No Rh Sensitization: No Incompetent Cervix: No ERIC: No Infertility: No ART Treatment: No Uterine Anomaly: No IUGR: No Hx Previous C/S: No Macrosomia: No Hx Loss/Stillborn: No PIH: No Hx : No Placenta Previa/Abruption: No Depression/PP Depression: No PTL/PROM: No Post Hemorrhage: No Current Procedures: Ultrasound Obstetrical History Comments: G1-3 <12week SAB G4 current SEE RECORDS Alcohol: No Marijuana : No Cocaine: No Other Illicit Drugs: No Cigarettes: Former Smoker. [id number] MEDICAL HISTORY Diabetes: No Blood Transfusion: No Pulmonary Disease (Asthma, TB): No Breast Disease: No Hypertension: No Washer Machine Surgery: No Heart Disease: No Hosp/Surgery: Yes Autoimmune Disorder: No Anesthetic Complications: No Kidney Disease: No Abnormal Pap Smear: No Neuro/Epilepsy: No Psychiatric Disorders: No Other Medical Diseases: No Hepatitis/Liver Disease: No Significant Family History: No Varicosities/Phlebitis: No Trauma/Violence : No Thyroid Dysfunction: No Medical History Comments: umbilical hernia at 4yo, INFECTIOUS HISTORY Gonorrhea: No Genital Herpes: No Chlamydia: No Tuberculosis: No Syphilis: No Hepatitis: No HIV/AIDS Exposure: No Rash or Viral Illness: No HPV: No PHYSICAL EXAM General: Normal HEENT: Normal Neurologic: Normal Thyroid: Deferred Heart: Normal Lungs: Normal Breast: Deferred Back: Normal Abdomen: Normal Genitourinary Exam: Normal Extremities: Normal DTRs: Normal Pelvic Type: Adequate Vital Signs: Reviewed VAGINAL EXAM Dilatation: 0 Effacement: 0 Station: -3 Contraction Comments: none FETUS A Monitoring: External US FHR- Baseline: 125 Variability: Moderate 6-25bpm Accelerations: 15X15 Decelerations: None FHR Category: Category I Presentation: Vertex Admit Comment: 23yo at 40+6ega presents for scheduled IOL for post CONSTANCE. GBS negative. EFW 7#2oz on 11/05. Normal PATRICK on 11/04. maternal Mitral valve prolapse. On pelvic exam very prominent pubic bone. Concern for adequate pelvis of not. REviewed pelvic concerns with patient and size of baby and reviewed poss planned section and she declines and would like trial of labor. ALso reviewed risks of possibel shoulder dystocia with pelvis structure. Will make oncoming staff aware. PLANS FOR LABOR AND DELIVERY Labor and Delivery: None Pain Management: Natural; Medications; Epidural Other Pain Management Plans: open to epidural Feeding Preference: Breast Benefit of Breast Feed Discussed: Yes Circumcision: Yes INFORMED CONSENT Informed Consent Obtained: Vaginal Delivery; Induction of Labor; Risks, Benefits and Alternatives Discussed Signature: with User ID: [email or web address]
[2018-11-13] MEDS ORDERED: CEFAZOLIN 2 GM/D5W RTU 0 GM/0 ML RTUPB IV ONE (18:59)
[2018-11-13] MEDS ORDERED: CITRIC ACID/SODIUM CITRATE ORAL SOLN 15 ML UDCUP ONE (18:59)
[2018-11-13] MEDS ORDERED: CEFAZOLIN 2 GM/D5W RTU 2 GM/50 ML RTUPB IV ONE (19:00)
[2018-11-13] MEDS ORDERED: EPHEDRINE SULFATE INJ 50 MG/1 ML AMPULE ONE (19:19)
[2018-11-13] MEDS ORDERED: BUPIVACAINE HCL 0.25 % INJ/PF (2.5 MG/1 ML) 30 ML VIAL ONE (19:20)
[2018-11-13] MEDS ORDERED: FENTANYL/BUPIVACAINE/NS/PF 0 MCG/0 ML RTUINJ EPI ONE (19:20)
[2018-11-13] MEDS ORDERED: ONDANSETRON HCL INJ/PF 4 MG/2 ML SDV ONE (19:34)
[2018-11-13] MEDS ORDERED: PHENYLEPHRINE HCL INJ/PF 10 MG/1 ML SDV ONE (19:34)
[2018-11-13] MEDS ORDERED: MIDAZOLAM 2 MG/2 ML INJ ONE (20:17)
--- NOTE | 2018-11-13 20:24 | Warning Signs in Babies ---
VOD Warning Signs Datetime Report Generated by [facility]: 11/13/2018 20:24 VOD#[id number] -Warning Signs in Babies: Needs to be viewed. (09/10/2018 12:56:Loraine Hernandez RN)
--- NOTE | 2018-11-13 20:52 | PDOC DELIVERY SUMMARY ---
Delivery Summary - Maternal Hx : I Hx Para: 0 Hx # Term Pregnancies: 0 CONSTANCE: 11/06/18 Gestational Age: 41.0 - Delivery Presentation: Vertex Heart Rate Monitoring: Externally Uterine Contraction Monitoring: External Location: LD : Primary Placenta: Within Normal Limits Placenta Description: Normal-appearing Number of Vessels (Cord): 3 Nuchal Cord: No - Body cord x1 Delivery of Placenta Date: 11/13/18 Estimated Blood Loss: 600 ml - Medications Type of Anesthesia:: Spinal - Delivery Personnel MD: YVETTE COFFMAN
[2018-11-13] MEDS ORDERED: ACETAMINOPHEN 1,000 MG/100 ML RTUPB IV ONE (20:53)
[2018-11-13] MEDS ORDERED: MORPHINE SULFATE 10 MG/ML INJ ONE (20:54)
[2018-11-13] MEDS ORDERED: HYDROMORPHONE HCL INJ/PF 2 MG/ML AMPULE IV PRN (20:56)
[2018-11-13] MEDS ORDERED: RINGERS SOLUTION,LACTATED 1,000 ML IV PRN (20:56)
[2018-11-13] MEDS ORDERED: PROMETHAZINE HCL INJ 25 MG/1 ML VIAL IV PRN (20:56)
[2018-11-13] MEDS ORDERED: DIPH/PERTUSS(ACELL)/TETANUS VAC/PF 0.5 ML SYR (>=10YO) IM PRN (20:56)
[2018-11-13] MEDS ORDERED: OXYCODONE-ACETAMINOPHEN 5-325 MG TABLET PO PRN (20:56)
[2018-11-13] MEDS ORDERED: ACETAMINOPHEN 325 MG TABLET PO PRN (20:56)
[2018-11-13] MEDS ORDERED: SIMETHICONE 80 MG TAB.CHEW PO PRN (20:56)
[2018-11-13] MEDS ORDERED: ACETAMINOPHEN 1,000 MG/100 ML RTUPB IV PRN (20:56)
[2018-11-13] MEDS ORDERED: OXYTOCIN/NORMAL SALINE 20 UNIT/1,000 ML RTUINJ IV PRN (20:56)
--- NOTE | 2018-11-13 20:56 | Operative Report ---
Operative Report DATE OF SURGERY: 11/13/18 PREOPERATIVE DIAGNOSIS: 1. Intrauterine at 41-0/7 weeks. 2. Failed induction. 3. CPD. 4. GBS negative sign. 5. Rh positive. 6. Rubella immune POSTOPERATIVE DIAGNOSIS: Same OPERATION: Primary low transverse section SURGEON: YVETTE SAVAGE ANESTHESIA: Spinal TISSUE REMOVED OR ALTERED: Placenta COMPLICATIONS: None ESTIMATED BLOOD LOSS: 600 ml INTRAOPERATIVE FINDINGS: Male fetus with a cephalic presentation with body cord x1; Apgars 8 at 1, 9 at 5 with a weight of 3085 kg; Normal-appearing uterus, bilateral tubes and ovaries PROCEDURE: The patient was taken to the operating room where spinal anesthesia was obtained and found to be adequate. She was then prepped and draped in the normal sterile fashion and placed in the dorsal supine position with a leftward tilt. A Pfannenstiel skin incision was then made and carried through to the underlying layers of the fascia with the scalpel. The fascia was incised in the midline and the incision extended laterally with the Selby scissors. The superior aspect of the fascial incision was then grasped with Rhonda clamps elevated and the underlying rectus muscles dissected off both bluntly and sharply. Attention was then turned to the inferior aspect of the fascial incision which in a similar fashion was grasped, tented up with Rhonda clamps, and the rectus muscles dissected off both bluntly and sharply. The rectus muscles were then in the midline and the peritoneum was identified and entered both sharply and bluntly. The peritoneal incision was then extended superiorly and inferiorly with good visualization of the bladder. The bladder blade was inserted and the vesicouterine peritoneum identified grasped with Brazilian pickups and entered sharply with the Metzenbaum scissors. This incision was then extended laterally with the Metzenbaum scissors and a bladder flap created digitally. The bladder blade was then reinserted and the lower uterine segment incised in a transverse fashion with the scalpel. The uterine incision was then extended bluntly and with the bandage scissors. The bladder blade was removed and the infant's head was delivered from cephalic presentation atraumatically. The cord doubly clamped and cut. The was handed off to waiting pediatricians. The placenta was then delivered manually and the uterus exteriorized and cleared of all clots and debris. The uterine incision was then repaired with 0 Vicryl in a running locked fashion. 0-Chromic was used to obtain hemostasis via imbrication of the initial layer. The bladder flap was then repaired with 3-0 Vicryl in a running fashion. The uterus was returned to the patient's abdomen and Interceed was placed overlying the uterine incision, as well as a piece placed vertically on the anterior surface of the uterus, to prevent adhesions. The gutters were cleared of all clots and debris. All operative sites were noted to be hemostatic. The fascia was reapproximated with 0 Vicryl in a running fashion from each lateral edge to the midline. The subcutaneous fat layer was then closed in an interrupted fashion with 3-0 vicryl. The skin was closed with 4-0 Monocryl in a running, subcuticular fashion. The patient tolerated the procedure well. Sponge, lap, needle and instrument counts are correct x 2. 2 g of Ancef were given prior to skin incision. The patient was taken to the recovery area awake and in stable condition.
[2018-11-13] MEDS ORDERED: HYDROMORPHONE HCL INJ/PF 2 MG/ML AMPULE ONE (21:44)
[2018-11-13] MEDS: KETOROLAC TROMETHAMINE INJ/PF 30 MG/1 ML SDV IV SCH (23:26)
[2018-11-14] MEDS: OXYCODONE-ACETAMINOPHEN 5-325 MG TABLET PO PRN ×5 (03:12→21:25)
[2018-11-14] MEDS: ZOLPIDEM TARTRATE 5 MG TABLET PO SCH ×2 (03:48→21:59)
[2018-11-14 06:29] LABS: HEMATOCRIT 29.7 % (36.0-47.0); HEMOGLOBIN 10.4 g/dL (12.0-15.5); MEAN CORPUSCULAR HEMOGLOBIN 31.1 pg (27.0-33.4); MEAN CORPUSCULAR HGB CONC 34.9 g/dL (32.0-36.0); MEAN CORPUSCULAR VOLUME 89 fl (80-97); PLATELET COUNT 260 10^3/uL (150-450); RED BLOOD COUNT 3.34 10^6/uL (3.72-5.28); RED CELL DISTRIBUTION WIDTH 12.8 % (11.5-14.0); WHITE BLOOD COUNT 16.5 10^3/uL (4.0-10.5)
[2018-11-14] MEDS: KETOROLAC TROMETHAMINE INJ/PF 30 MG/1 ML SDV IV SCH ×2 (07:01→13:06)
--- NOTE | 2018-11-14 09:05 | PDOC PROGRESS REPORT ---
Subjective-OB Progress Note for:: 11/14/18 Physical Exam (OB) Vital Signs: Temp Pulse Resp BP Pulse Ox 98.1 F 69 14 104/59 L 99 11/14/18 02:21 11/14/18 02:21 11/14/18 02:21 11/14/18 02:21 11/14/18 02:21 Intake & Output 11/13/18 11/14/18 11/15/18 06:59 06:59 06:59 Intake Total 240 Output Total 375 Balance -135 Weight 70.5 kg - PIH/Pre-Eclampsia Headache: Absent Epigastric Pain: No Visual Changes: No - Dressing Removed: No Incision: Dressing, Well Approximated Closure Type: Sutures - Lochia Lochia Amount: Scant < 10 ml Lochia Color: Rubra/Red - Abdomen Description: Tender, Soft, Round Hernia Present: No Bowel Sounds: Normoactive Flatus Presence: Present Fundal Description: Firm, Midline Fundal Height: u/u - u/2 - Respiratory Breath sounds: Clear - Extremities Calf: Nontender Objective-Diagnostic Laboratory: 11/14/18 06:15 11/14/18 06:15 WBC 16.5 H RBC 3.34 L Hgb 10.4 L Hct 29.7 L MCV 89 MCH 31.1 MCHC 34.9 RDW 12.8 Plt Count 260 Assessment and Plan(PN) - Assessment and Plan (1) Post term at 41 weeks gestation Is this a current diagnosis for this admission?: Yes - Time Spent with Patient Time with patient: Less than 15 minutes Medications reviewed and adjusted accordingly: Yes - Disposition Anticipated Discharge: Home Within: within 24 hours
[2018-11-14] MEDS: DOCUSATE SODIUM 100 MG CAPSULE PO SCH ×2 (09:28→17:12)
[2018-11-14] MEDS: PRENATAL VITAMIN W DHA CAPSULE PO SCH (09:28)
[2018-11-14] MEDS: IBUPROFEN 800 MG TABLET PO SCH ×3 (13:05→23:31)
[2018-11-15] MEDS: OXYCODONE-ACETAMINOPHEN 5-325 MG TABLET PO PRN ×2 (01:28→08:32)
[2018-11-15] MEDS: IBUPROFEN 800 MG TABLET PO SCH ×2 (05:46→12:11)
--- NOTE | 2018-11-15 10:26 | PDOC DISCHARGE SUMMARY ---
Final Diagnosis Discharge Date: 11/15/18 - Final Diagnosis (1) Failure to progress in labor Is this a current diagnosis for this admission?: Yes (2) Status post primary low transverse section Is this a current diagnosis for this admission?: Yes (3) Post term at 41 weeks gestation Is this a current diagnosis for this admission?: Yes Discharge Data - Discharge Medication Prescriptions: Ibuprofen [Motrin 800 mg Tablet] 800 mg PO Q8HP PRN #90 tablet PRN Reason: Oxycodone HCl/Acetaminophen [Percocet 5-325 mg Tablet] 1 tab PO Q4HP PRN #30 tablet PRN Reason: Home Medications: Pnv,Calcium 72/Iron/Folic Acid [ Plus Tablet] 1 tab PO DAILY 09/10/18 Ibuprofen [Motrin 800 mg Tablet] 800 mg PO Q8HP PRN #90 tablet 11/15/18 Oxycodone HCl/Acetaminophen [Percocet 5-325 mg Tablet] 1 tab PO Q4HP PRN #30 tablet 11/15/18 Procedures: NST Intrapartum Procedure(s): : Low Cervical, Transverse - Diagnosis Test Laboratory: Temp Pulse Resp BP Pulse Ox 98.0 F 61 16 112/65 99 11/15/18 08:24 11/15/18 08:24 11/15/18 08:24 11/15/18 08:24 11/15/18 08:24 11/12/18 11/12/18 11/14/18 18:49 19:19 06:15 RBC 3.86 3.34 L Hgb 11.9 L 10.4 L Hct 34.4 L 29.7 L Urine Opiates Screen NEGATIVE - Discharge information/Instructions Discharge Activity: Balance Activity w/Rest, No Lifting Over 10 Pounds, No Lifting/Push/Pulling, Pelvic Rest, No tub bath Discharge Diet: Regular Disposition: HOME, SELF-CARE Follow up with: [facility] in: 1, Weeks - incision check
[2018-11-15 11:38] VITALS: BP 104/61
[2018-11-15] MEDS: DOCUSATE SODIUM 100 MG CAPSULE PO SCH (12:10)
[2018-11-15] MEDS: PRENATAL VITAMIN W DHA CAPSULE PO SCH (12:10)
== END 2018-11-15 16:05 | disposition home or self-care (01) | DRG 788 ==
LOC: LR 18:27 → 2S 11-13 23:00
PROVIDERS: ADMIT Student in an Organized Health Care Education/Training Program; ATTEND Student in an Organized Health Care Education/Training Program
PROC: 10D00Z1 Extraction of Products of Conception, Low, Open Approach (ICD-10-PCS; principal; 2018-11-13)
DX: O48.0 Post-term pregnancy (principal); O61.9 Failed induction of labor, unspecified; O33.9 Maternal care for disproportion, unspecified; Z3A.41 41 weeks gestation of pregnancy; Z88.8 Allergy status to other drugs, medicaments and biological substances; Z88.3 Allergy status to other anti-infective agents; Z87.891 Personal history of nicotine dependence; Z91.040 Latex allergy status; Z37.0 Single live birth
CPT/HCPCS: 1961; 36415; 80307; 81005; 85025; 85027; 86592; 86850; 86900; 86901; 94799; J0131; J0690; J1170; J1885; J2250; J2270; J2370; J2405; J2590; J3010; J3490; J7120

== ENCOUNTER 2019-01-23 00:29 | Emergency (ER) | payer MEDICAID ==
[2019-01-23 01:26] VITALS: BP 104/77
--- NOTE | 2019-01-23 01:32 | ER Document Report ---
ED Medical Screen (RME) - General Chief Complaint: Post Problem Stated Complaint: PSYCH Time Seen by Provider: 01/23/19 01:27 Primary Care Provider: ELISABETH HU MD [Primary Care Provider] - Follow up as needed Mode of Arrival: Ambulatory Information source: Patient Notes: 23-year-old female presented to ED for complaint of thoughts of suicide. Patient is and is having thoughts of suicide. She states she told her mother her and her sister. Her sister has brought her in [facility] for IVC. She is having depression. She states she has never had any thoughts of suicide or any mental health issues in the past. She states the only medical history she has is an umbilical hernia repair. She states she stopped smoking for a long time but she smoked 2 cigarettes tonight. I have greeted and performed a rapid initial assessment of this patient. A comprehensive ED assessment and evaluation of the patient, analysis of test results and completion of medical decision making process will be conducted by an additional ED providers. TRAVEL OUTSIDE OF THE [place] IN LAST 30 DAYS: No - Related Data Allergies/Adverse Reactions: amoxicillin trihydrate [From Augmentin] Allergy (Verified 11/12/18 19:33) Potassium Clavulanate * [From Augmentin] Allergy (Verified 11/12/18 19:33) Past Medical History - Past Medical History Cardiac Medical History: Reports: Hx Heart Murmur - Heart at this time Pulmonary Medical History: Reports: Hx Asthma Renal/ Medical History: Denies: Hx Peritoneal Dialysis Musculoskeltal Medical History: Reports Hx Musculoskeletal Trauma - Fractured left fourth finger and fifth left toe and nose Psychiatric Medical History: Reports: Hx Depression Traumatic Medical History: Reports: Hx Fractures - Left fourth finger left fifth toe Past Surgical History: Reports: Hx Abdominal Surgery - umbilical, Hx Umbilical H ernia - Immunizations Immunizations up to date: Yes Hx Diphtheria, Pertussis, Tetanus Vaccination: Yes Physical Exam - Vital signs Vitals: Temp Pulse Resp BP Pulse Ox 98.0 F 98 20 104/77 97 01/23/19 01:25 01/23/19 01:25 01/23/19 01:25 01/23/19 01:25 01/23/19 01:25 Course - Vital Signs Vital signs: Temp Pulse Resp BP Pulse Ox 98.0 F 98 20 104/77 97 01/23/19 01:01/23/19 01:01/23/19 01:01/23/19 01:01/23/19 01:25 Doctor's Discharge - Discharge Referrals: ELISABETH HU MD [Primary Care Provider] - Follow up as needed
[2019-01-23 02:05] LABS: APPEARANCE,URINE CLOUDY; BILIRUBIN,URINE NEGATIVE (NEGATIVE); COLOR,URINE YELLOW; GLUCOSE, URINE NEGATIVE (NEGATIVE); KETONES,URINE NEGATIVE (NEGATIVE); LEUKOCYTE ESTERASE,URINE NEGATIVE (NEGATIVE); NITRITE,URINE NEGATIVE (NEGATIVE); PROTEIN,URINE NEGATIVE (NEGATIVE); URINE SPECIFIC GRAVITY 1.015; UROBILINOGEN,URINE NEGATIVE mg/dL (<2.0)
[2019-01-23 02:25] LABS: URINE AMPHETAMINES SCREEN NEGATIVE; URINE BARBITURATES SCREEN NEGATIVE; URINE BENZODIAZEPINES SCREEN NEGATIVE; URINE COCAINE SCREEN NEGATIVE; URINE MARIJUANA (THC) SCREEN UNCONFIRMED POSITIVE; URINE METHADONE SCREEN NEGATIVE; URINE PHENCYCLIDINE SCREEN NEGATIVE
--- NOTE | 2019-01-23 07:36 | EKG REPORT ---
SEVERITY:- NORMAL ECG - SINUS RHYTHM : Confirmed by: Kendall West MD 23-Jan-2019 07:36:24
== END 2019-01-23 03:05 | disposition left against medical advice (07) ==
LOC: ER 00:29
DX: Z53.21 Procedure and treatment not carried out due to patient leaving prior to being seen by health care provider (principal); R45.851 Suicidal ideations; J45.909 Unspecified asthma, uncomplicated; F17.210 Nicotine dependence, cigarettes, uncomplicated
CPT/HCPCS: 80307; 81001; 93005; 93010; 99281

== ENCOUNTER → 2019-06-02 | Outpatient (CLI) | payer MEDICAID ==
--- NOTE | 2019-06-02 16:26 | RADIOLOGY REPORT (SQ) ---
EXAM DESCRIPTION: U/S [id number] TRNABD 1GES W/ODOP COMPLETED DATE/TIME: 06/02/2019 4:05 pm REASON FOR STUDY: Z34.82 ENCOUNTER FOR SUPRVSN OF NORMAL , SECOND TRIMESTER Z34.81 ENCOUNT ER FOR SUPRVSN OF NORMAL , FIRST TRIM COMPARISON: None. TECHNIQUE: Static and Dynamic grayscale imaging performed of gravid uterus using transabdominal appr oach. Additional selected color Doppler and spectral images recorded. All stored on PACS. LIMITATIONS: None. FINDINGS: FETUSES SEEN:1 EGA: 16 weeks 4 dated Calculated using BPD,FL,HC,AC documented on images. No discrepancy with clinic al dates. CONSTANCE: 17 20 EFW: 158 grams PERCENTILE: Not applicable. Fetus less than or equal to 20 weeks gestation. PATRICK: 11.0 PLACENTA: Anterior. GRADE: I PRESENTATION: Variable. ANATOMY: HEART RATE: 143 beats per minute. FOUR CHAMBER HEART: Not visualized. THREE VESSEL CORD: Yes. CORD INSERTION: Visualized. KIDNEYS AND BLADDER: Visualized. Appear normal. STOMACH: Visualized. Appears normal. SPINE: Suboptimal visualization. BRAIN AND LATERAL VENTRICLES: Visualized. Appear normal. OTHER: No other significant finding. MATERNAL ADNEXA: Maternal ovaries not visualized. CERVICAL LENGTH: 2.3 cm. Closed. OTHER: No other significant finding. IMPRESSION: LIVING INTRAUTERINE . ESTIMATED GESTATIONAL AGE 16 weeks 4 days. NO VISUALIZED ANOMALIES. Trimester of : Second trimester - 13 weeks 1 day to 27 weeks 6 days. TECHNICAL DOCUMENTATION: JOB ID: [id number] [employer]- All Rights Reserved Reading location - IP/workstation name: [email or web address]
== END ==
LOC: RAD 14:39
PROVIDERS: ATTEND Midwife
DX: Z34.82 Encounter for supervision of other normal pregnancy, second trimester (principal)
CPT/HCPCS: 76801

== ENCOUNTER 2019-11-10 05:04 | Inpatient (IN) | payer MEDICAID ==
[2019-11-05 11:15] LABS: ABSOLUTE BASOPHILS # (AUTO) 0.1 10^3/uL (0.0-0.2); ABSOLUTE EOSINOPHILS # (AUTO) 0.1 10^3/uL (0.0-0.6); ABSOLUTE LYMPHOCYTES (AUTO) 2.8 10^3/uL (0.5-4.7); ABSOLUTE MONOCYTES (AUTO) 0.8 10^3/uL (0.1-1.4); BASOPHILS % (AUTO) 0.5 % (0-2); EOSINOPHILS % (AUTO) 0.9 % (0-6); HEMATOCRIT 34.1 % (36.0-47.0); HEMOGLOBIN 11.5 g/dL (12.0-15.5); LYMPHOCYTES % (AUTO) 26.2 % (13-45); MEAN CORPUSCULAR HEMOGLOBIN 28.5 pg (27.0-33.4); MEAN CORPUSCULAR HGB CONC 33.8 g/dL (32.0-36.0); MEAN CORPUSCULAR VOLUME 84 fl (80-97); MONOCYTES % (AUTO) 7.5 % (3-13); PLATELET COUNT 326 10^3/uL (150-450); RED BLOOD COUNT 4.05 10^6/uL (3.72-5.28); RED CELL DISTRIBUTION WIDTH 14.7 % (11.5-14.0); SEGMENTED NEUTROPHILS % (AUTO) 64.9 % (42-78); TOTAL CELLS COUNTED % (AUTO) 100 %; WHITE BLOOD COUNT 10.8 10^3/uL (4.0-10.5)
[2019-11-05 11:16] LABS: APPEARANCE,URINE SLIGHTLY-CLOUDY; BILIRUBIN,URINE NEGATIVE (NEGATIVE); COLOR,URINE YELLOW; GLUCOSE, URINE NEGATIVE (NEGATIVE); KETONES,URINE NEGATIVE (NEGATIVE); LEUKOCYTE ESTERASE,URINE NEGATIVE (NEGATIVE); NITRITE,URINE NEGATIVE (NEGATIVE); PROTEIN,URINE NEGATIVE (NEGATIVE); URINE SPECIFIC GRAVITY 1.013; UROBILINOGEN,URINE NEGATIVE mg/dL (<2.0)
[2019-11-05 11:36] LABS: URINE AMPHETAMINES SCREEN NEGATIVE; URINE BARBITURATES SCREEN NEGATIVE; URINE BENZODIAZEPINES SCREEN NEGATIVE; URINE COCAINE SCREEN NEGATIVE; URINE MARIJUANA (THC) SCREEN NEGATIVE; URINE METHADONE SCREEN NEGATIVE; URINE PHENCYCLIDINE SCREEN NEGATIVE
[~2019-11-10 05:04] MED LIST: AZITHROMYCIN 500 MG in DEXTROSE 5%-WATER 250 ML IV PRN; LACTATED RINGERS 1000 ML IV PRN; LIDOCAINE 0.5% INJ-PF (5 MG/ML) 50 ML SDV SUBCUT PRN; RINGERS SOLUTION,LACTATED 1,000 ML IV ONE
[2019-11-10] MEDS ORDERED: FENTANYL CITRATE INJ/PF 100 MCG/2 ML AMPUL ONE (07:35)
[2019-11-10] MEDS ORDERED: PHENYLEPHRINE HCL INJ/PF 10 MG/1 ML SDV ONE (07:35)
[2019-11-10] MEDS ORDERED: OXYTOCIN 10 UNIT/ML VIAL ONE (07:35)
[2019-11-10] MEDS ORDERED: KETOROLAC TROMETHAMINE INJ/PF 30 MG/1 ML SDV ONE (07:35)
[2019-11-10] MEDS ORDERED: ACETAMINOPHEN 1,000 MG/100 ML RTUPB IV ONE (07:35)
[2019-11-10] MEDS ORDERED: ONDANSETRON HCL INJ/PF 4 MG/2 ML SDV ONE (07:35)
[2019-11-10] MEDS ORDERED: ROPIVACAINE HCL 0.2% INJ/PF (2 MG/ML) 20 ML SDV ONE (07:35)
[2019-11-10] MEDS ORDERED: OXYCODONE-ACETAMINOPHEN 5-325 MG TABLET PO PRN (08:44)
[2019-11-10] MEDS ORDERED: RINGERS SOLUTION,LACTATED 1,000 ML IV PRN (08:44)
[2019-11-10] MEDS ORDERED: PROMETHAZINE HCL INJ 25 MG/1 ML VIAL IV PRN (08:44)
[2019-11-10] MEDS ORDERED: OXYTOCIN/0.9 % SODIUM CHLORIDE 30 UNIT/500 ML RTUINJ IV PRN (08:44)
[2019-11-10] MEDS ORDERED: DIPH/PERTUSS(ACELL)/TETANUS VAC/PF 0.5 ML SYR (>=10YO) IM PRN (08:44)
[2019-11-10] MEDS ORDERED: MEASLES,MUMPS&RUBELLA VACC/PF 0.5 ML VIAL SUBCUT PRN (08:44)
[2019-11-10] MEDS ORDERED: ACETAMINOPHEN 1,000 MG/100 ML RTUPB IV PRN (08:44)
[2019-11-10] MEDS ORDERED: SIMETHICONE 80 MG TAB.CHEW PO PRN (08:44)
[2019-11-10] MEDS ORDERED: ACETAMINOPHEN 325 MG TABLET PO PRN (08:44)
--- NOTE | 2019-11-10 08:49 | Operative Report ---
Operative Report DATE OF SURGERY: 11/10/19 PREOPERATIVE DIAGNOSIS: IUP at 39 weeks and 2 days, previous c/section POSTOPERATIVE DIAGNOSIS: Same OPERATION: Repeat low transverse hysterotomy section SURGEON: MATEO HANNA ANESTHESIA: Spinal COMPLICATIONS: None ESTIMATED BLOOD LOSS: 600 cc INTRAOPERATIVE FINDINGS: Female cephalic presentation Apgars of 8 and 9 very minimal amount of amniotic fluid suspicious for unrecognized rupture of membranes PROCEDURE: PROCEDURE IN DETAIL: The patient was taken to the operating room, prepared and draped in a normal sterile fashion in a supine position with a leftward tilt. A transverse skin incision was made with a scalpel and carried through to the underlying layer of fascia with the same scalpel. The fascia was excised in the midline and extended laterally with Jennifer. The fascia was then dissected from the rectus muscle sharply with Jennifer and the rectus muscle was divided and the peritoneal cavity was entered sharply with the same Metzenbaum. With good visualization of the bladder and the uterus the bladder blade was inserted. The hysterotomy was nicked with a scalpel and extended laterally with surgeon finger fraction. The infant was then delivered atraumatically. The nose and mouth were suctioned with a suction bulb, the cord was clamped and cut and handed off to awaiting pediatricians. Cord blood was collected. The placenta was removed manually. The uterus was exteriorized and cleared of clots and debris. The hysterotomy was closed with 0 Monocryl in a running, locked fashion. A second layer of the same suture was used to imbricate to ensure hemostasis. The uterus was returned to the abdomen and peritoneal cavity was cleared of clots and debris. The rectus muscle and peritoneum were repaired with mattress stitch of 2-0 Chromic. The fascia was closed with 0-Vicryl. The subcutaneous layer was closed with plain catgut and the skin was closed with 4-0 Vicryl. The patient tolerated the procedure well. Sponge, lap, and needle counts correct x2 and the patient was taken to recovery in stable condition.
[2019-11-10] MEDS ORDERED: OXYTOCIN/0.9 % SODIUM CHLORIDE 30 UNIT/500 ML RTUINJ ONE (09:22)
[2019-11-10] MEDS: DOCUSATE SODIUM 100 MG CAPSULE PO SCH ×2 (11:32→17:15)
[2019-11-10] MEDS: PRENATAL VITAMIN W DHA CAPSULE PO SCH (11:32)
[2019-11-10] MEDS: MORPHINE SULFATE 10 MG/ML INJ IV PRN ×3 (12:07→23:42)
[2019-11-10] MEDS: OXYCODONE-ACETAMINOPHEN 5-325 MG TABLET PO PRN ×2 (14:08→21:43)
[2019-11-10] MEDS: KETOROLAC TROMETHAMINE INJ/PF 30 MG/1 ML SDV IV SCH ×2 (14:29→21:37)
[2019-11-11] MEDS: OXYCODONE-ACETAMINOPHEN 5-325 MG TABLET PO PRN ×5 (02:08→20:15)
[2019-11-11] MEDS: IBUPROFEN 800 MG TABLET PO SCH ×4 (05:25→23:30)
[2019-11-11 08:09] LABS: HEMATOCRIT 32.5 % (36.0-47.0); MEAN CORPUSCULAR HEMOGLOBIN 28.3 pg (27.0-33.4); MEAN CORPUSCULAR VOLUME 83 fl (80-97); PLATELET COUNT 311 10^3/uL (150-450); RED CELL DISTRIBUTION WIDTH 14.5 % (11.5-14.0); WHITE BLOOD COUNT 11.6 10^3/uL (4.0-10.5)
[2019-11-11] MEDS: DOCUSATE SODIUM 100 MG CAPSULE PO SCH ×2 (09:31→17:45)
[2019-11-11] MEDS: PRENATAL VITAMIN W DHA CAPSULE PO SCH (09:31)
--- NOTE | 2019-11-11 09:39 | PDOC PROGRESS REPORT ---
Subjective-OB Progress Note for:: 11/11/19 Subjective: reports bleeding slowing, pain controlled with current meds. denies needs Physical Exam (OB) Vital Signs: Temp Pulse Resp BP Pulse Ox 97.5 F 69 16 110/63 99 11/11/19 07:26 11/11/19 07:26 11/11/19 07:26 11/11/19 07:26 11/11/19 07:26 Intake & Output 11/10/19 11/11/19 11/12/19 06:59 06:59 06:59 Intake Total 2450 Output Total 2900 Balance -450 - Dressing Removed: No Incision: Dressing Closure Type: opsite - Abdomen Description: Tender Hernia Present: No Fundal Description: Firm Fundal Height: u/u - u/2 - Abdominal Distension: No distension - Extremities Lower extremities: Randy's sign - neg Calf: Normal, Nontender Objective-Diagnostic Laboratory: 11/11/19 06:42 11/11/19 06:42 WBC 11.6 H RBC 3.90 Hgb 11.0 L Hct 32.5 L MCV 83 MCH 28.3 MCHC 34.0 RDW 14.5 H Plt Count 311 Assessment and Plan(PN) - Time Spent with Patient Time with patient: Less than 15 minutes - Disposition Anticipated Discharge: Home Within: within 48 hours
[2019-11-12] MEDS: OXYCODONE-ACETAMINOPHEN 5-325 MG TABLET PO PRN ×2 (01:17→07:15)
[2019-11-12] MEDS: IBUPROFEN 800 MG TABLET PO SCH ×2 (06:37→12:40)
--- NOTE | 2019-11-12 09:21 | PDOC PROGRESS REPORT ---
Subjective-OB Progress Note for:: 11/12/19 Subjective: Doing well, ready to go home, voiding, eating, sitting up in chair, no c/o, no lochia, passing gas Physical Exam (OB) Vital Signs: Temp Pulse Resp BP Pulse Ox 98.0 F 80 16 110/58 L 100 11/12/19 04:16 11/12/19 04:16 11/12/19 04:16 11/12/19 04:16 11/12/19 04:16 Intake & Output 11/11/19 11/12/19 11/13/19 06:59 06:59 06:59 Intake Total 2450 300 Output Total 2900 900 Balance -450 -600 - PIH/Pre-Eclampsia DTR's: 2 + Clonus: Negative Headache: Absent Epigastric Pain: No Visual Changes: No - Dressing Removed: No Incision: Dressing Closure Type: opsite - Lochia Lochia Amount: Scant < 10 ml Lochia Color: Rubra/Red - Abdomen Description: Soft, Round Hernia Present: No Fundal Description: Firm, Midline Fundal Height: u/u - u/2 Objective-Diagnostic Laboratory: 11/11/19 06:42 Assessment and Plan(PN) - Assessment and Plan (1) Positive GBS test Is this a current diagnosis for this admission?: Yes (2) Status post primary low transverse section Is this a current diagnosis for this admission?: Yes - Time Spent with Patient Time with patient: Less than 15 minutes Medications reviewed and adjusted accordingly: Yes - Disposition Anticipated Discharge: Home Within: within 24 hours
[2019-11-12 09:24] VITALS: BP 112/64
--- NOTE | 2019-11-12 09:26 | PDOC DISCHARGE SUMMARY ---
Impression - Admit/DC Date/PCP Admission Date/Primary Care Provider: 11/10/19 05:04 MATEO HANNA MD Discharge Date: 11/12/19 - Discharge Diagnosis (1) Positive GBS test Is this a current diagnosis for this admission?: Yes (2) Status post primary low transverse section Is this a current diagnosis for this admission?: Yes - Additional Information Resuscitation Status: Full Code Discharge Diet: As Tolerated, Regular Discharge Activity: Balance Activity w/Rest, Bedrest, Pelvic Rest Referrals: MATEO HANNA MD [Primary Care Provider] - (rtc 1 week) Prescriptions: Oxycodone HCl/Acetaminophen [Percocet 5-325 mg Tablet] 1 tab PO Q4HP PRN #20 tablet PRN Reason: Ibuprofen [Motrin 800 mg Tablet] 800 mg PO Q6 #30 tablet Home Medications: Pnv,Calcium 72/Iron/Folic Acid [ Plus Tablet] 1 tab PO DAILY 09/10/18 Ibuprofen [Motrin 800 mg Tablet] 800 mg PO Q6 #30 tablet 11/12/19 Oxycodone HCl/Acetaminophen [Percocet 5-325 mg Tablet] 1 tab PO Q4HP PRN #20 tablet 11/12/19 HPI Gestational Age: 39.2 Reason(s) for Admission: Ceasarean Section-Repeat Procedures: NST, Ultrasound Intrapartum Procedure(s): : Low Cervical, Transverse Hospital Course Hospital Course: routine post op Results Laboratory Results: WBC 11.6 10^3/uL (4.0-10.5) H 11/11/19 06:42 RBC 3.90 10^6/uL (3.72-5.28) 11/11/19 06:42 Hgb 11.0 g/dL (12.0-15.5) L 11/11/19 06:42 Hct 32.5 % (36.0-47.0) L 11/11/19 06:42 MCV 83 fl (80-97) 11/11/19 06:42 MCH 28.3 pg (27.0-33.4) 11/11/19 06:42 MCHC 34.0 g/dL (32.0-36.0) 11/11/19 06:42 RDW 14.5 % (11.5-14.0) H 07/08/20 06:42 Plt Count 311 10^3/uL (150-450) 11/11/19 06:42 Lymph % (Auto) 26.2 % (13-45) 11/05/19 10:20 [place] % (Auto) 7.5 % (3-13) 11/05/19 10:20 Eos % (Auto) 0.9 % (0-6) 11/05/19 10:20 Baso % (Auto) 0.5 % (0-2) 11/05/19 10:20 Absolute Neuts (auto) 7.0 10^3/uL (1.7-8.2) 11/05/19 10:20 Absolute Lymphs (auto) 2.8 10^3/uL (0.5-4.7) 11/05/19 10:20 Absolute Monos (auto) 0.8 10^3/uL (0.1-1.4) 11/05/19 10:20 Absolute Eos (auto) 0.1 10^3/uL (0.0-0.6) 11/05/19 10:20 Absolute Basos (auto) 0.1 10^3/uL (0.0-0.2) 11/05/19 10:20 Seg Neutrophils % 64.9 % (42-78) 11/05/19 10:20 Urine Color YELLOW 11/05/19 10:15 Urine Appearance SLIGHTLY-CLOUDY 11/05/19 10:15 Urine pH 6.0 (5.0-9.0) 11/05/19 10:15 Ur Specific [place] 1.013 11/05/19 10:15 Urine Protein NEGATIVE mg/dL (NEGATIVE) 11/05/19 10:15 Urine Glucose (UA) NEGATIVE mg/dL (NEGATIVE) 11/05/19 10:15 Urine Ketones NEGATIVE mg/dL (NEGATIVE) 11/05/19 10:15 Urine Blood NEGATIVE (NEGATIVE) 11/05/19 10:15 Urine Nitrite NEGATIVE (NEGATIVE) 11/05/19 10:15 Urine Bilirubin NEGATIVE (NEGATIVE) 11/05/19 10:15 Urine Urobilinogen NEGATIVE mg/dL (<2.0) 11/05/19 10:15 Ur Leukocyte Esterase NEGATIVE (NEGATIVE) 11/05/19 10:15 Urine WBC (Auto) 1 /HPF 11/05/19 10:15 U Hyaline Cast (Auto) 1 /LPF 11/05/19 10:15 Squamous Epi Cells Auto 12 /HPF 11/05/19 10:15 Urine Mucus (Auto) RARE /LPF 11/05/19 10:15 Urine Ascorbic Acid NEGATIVE (NEGATIVE) 11/05/19 10:15 Urine Opiates Screen NEGATIVE 11/05/19 10:15 Urine Methadone Screen NEGATIVE 11/05/19 10:15 Ur Barbiturates Screen NEGATIVE 11/05/19 10:15 Ur Phencyclidine Scrn NEGATIVE 11/05/19 10:15 Ur Amphetamines Screen NEGATIVE 11/05/19 10:15 U Benzodiazepines Scrn NEGATIVE 11/05/19 10:15 Urine Cocaine Screen NEGATIVE 11/05/19 10:15 U Marijuana (THC) Screen NEGATIVE 11/05/19 10:15 COVID-19 Source NASOPHARYNGEAL 11/05/19 10:10 COVID-19 (YURY) NOT DETECTED 11/05/19 10:10 Blood Type A POSITIVE 11/09/19 12:05 Antibody Screen NEGATIVE 11/09/19 12:05 Plan Health Concerns: post op pain, routine post op Plan of Treatment: discharge home, rev S&S to report Goals: no complications Time Spent: Less than 30 Minutes
[2019-11-12] MEDS: DOCUSATE SODIUM 100 MG CAPSULE PO SCH (10:21)
[2019-11-12] MEDS: PRENATAL VITAMIN W DHA CAPSULE PO SCH (10:21)
== END 2019-11-12 13:20 | disposition home or self-care (01) | DRG 788 ==
LOC: 2S 05:04
PROVIDERS: ADMIT Obstetrics & Gynecology; ATTEND Obstetrics & Gynecology
PROC: 10D00Z1 Extraction of Products of Conception, Low, Open Approach (ICD-10-PCS; principal; 2019-11-10)
DX: O99.824 Streptococcus B carrier state complicating childbirth (principal); O34.211 Maternal care for low transverse scar from previous cesarean delivery; Z37.0 Single live birth; Z3A.39 39 weeks gestation of pregnancy; Z87.891 Personal history of nicotine dependence; Z03.818 Encounter for observation for suspected exposure to other biological agents ruled out
CPT/HCPCS: 1961; 36415; 59025; 64450; 76942; 80307; 81001; 85025; 85027; 86850; 86900; 86901; 87635; 94799; C9803; J0131; J0456; J1885; J2270; J2370; J2405; J2590; J2795; J3010; J3490; J7060; J7120